=== PATIENT | female | born 1955 | race Caucasian/White ===

== ENCOUNTER 2016-12-04 20:27 | Emergency (ER) | payer OTHER ==
[~2016-12-04] VITALS: Ht 172.7 cm; Wt 140.2 kg
[2016-12-04 20:51] VITALS: BP 141/71
== END 2016-12-05 01:02 | disposition home or self-care (01) ==
LOC: ER 20:27
DX: H57.02 Anisocoria (principal); I10 Essential (primary) hypertension
CPT/HCPCS: 70450

== ENCOUNTER 2024-04-30 15:36 | Emergency (ER) | payer OTHER ==
[~2024-04-30] VITALS: Ht 172.7 cm; Wt 140.9 kg
--- NOTE | 2024-04-30 16:02 | ED.PDOC ---
Musculoskeletal HPI Comments 69 y.o morbidly obese female presents to the ED via EMS for a chief complaint of chronic bilateral knee pain and swelling, worse on the right side. Patient reports ongoing pain for years that has gradually worsened over time, is on [place] 10mg prescribed by pain management doctor. Patient has been evaluated for knee pain in the past, has been worked up but continues to have swelling with pain. The patient was on Lasix but no longer prescribed the medication. She denies any recent falls or trauma to pain site. Per EMS, patient ambulated down stairs and onto the gurney with no assistance. Patient is able to bear some weight on bilateral legs but does complain of increased pain. At rest, patient rates pain rate a 5/10. No numbness or erythema reported. Vital signs were stable at arrival Chief Complaint: Lower Extremity Time Seen by MD: 15:54 Primary Care Provider: BLANK Reviewed Notes: Nurses Notes, Physician Notes, Medications, Allergies Allergies: Coded Allergies: NO KNOWN ALLERGIES (Unverified , 12/04/16) Information Source: Patient, Emergency Med Personnel Mode of Arrival: EMS Location: Bilateral (Right greater than left) Extremity Location: Knee Timing: Came on: Gradually Severity: Moderate Able to Move Extremity: Yes Bear Weight: Limited Pain: Moderate Mechanism: Spontaneous, None Circumstances: Preceding Wound Symptoms: Swelling, Pain DVT Risk Factors: NONE Associated signs and symptoms: Swelling, Knee pain (bilateral ) Past Medical History PAST MEDICAL HISTORY: HTN Past Medical History (Other): chronic knee pain Surgical History: Denies all surgeries [employer]SULTANT History: No Pertinent [employer] CONS[employer]ANT History Family History Family History: Reviewed,noncontributory to illness Social History Smoker: Non-Smoker Alcohol: Denies ETOH Use Drugs: Denies Drug Use Lives In: Home Constitutional: denies: chills, diaphoresis, fatigue, fever, malaise, sweats, weakness, others EENTM: denies: blurred vision, double vision, ear bleeding, ear discharge, ear drainage, ear pain, ear ringing, eye pain, eye redness, hearing loss, mouth pain, mouth swelling, nasal discharge, nose bleeding, nose congestion, nose pain, photophobia, tearing, throat pain, throat swelling, voice changes, others Respiratory: denies: cough, hemoptysis, orthopnea, SOB at rest, shortness of breath, SOB with excertion, stridor, wheezing, others Cardiovascular: denies: chest pain, dizzy spells, diaphoresis, Dyspnea on exertion, edema, irregular heart beat, left arm pain, lightheadedness, palpitations, PND, syncope, others Gastrointestinal: denies: abdomen distended, abdominal pain, blood streaked bowels, constipated, diarrhea, dysphagia, difficulty swallowing, hematemesis, melena, nausea, poor appetite, poor fluid intake, rectal bleeding, rectal pain, vomiting, others Genitourinary: denies: abnormal vagina bleeding, burning, dyspareunia, dysuria, flank pain, frequency, hematuria, incontinence, pain, , vagina discharge, urgency, others Neurological: denies: dizziness, fainting, headache, left sided numbness, left sided weakness, numbness, paresthesia, pre-existing deficit, right sided numbness, right sided weakness, seizure, speech problems, tingling, tremors, weakness, others Musculoskeletal: reports: others (Bilateral knee pain and swelling ); denies: back pain, gout, joint pain, joint swelling, muscle pain, muscle stiffness, neck pain Integumetry: denies: bruises, change in color, change in hair/nails, dryness, laceration, lesions, lumps, rash, wounds, others Allergic/Immunocompromised: denies: Difficulty Healing, Frequent Infections, Hives, Itching, others Hematologic/Lymphatic: denies: anemia, blood clots, easy bleeding, easy bru ising, swollen glands, others Endocrine: denies: excessive hunger, excessive sweating, excessive thirst, e xcessive urination, flushing, intolerance to cold, intolerance to heat, unexplained weight gain, unexplained weight loss, others Psychiatric: denies: anxiety, bipolar disorder, depression, hopeless, panic disorder, schizophrenia, sleepless, suicidal, others All Other Systems: Reviewed and Negative Physical Exam General Appearance: Moderate Distress (Due to bilateral knee pain with right greater than left.), Obese HEENT: Normal ENT Inspection, Pharynx Normal, TMs Normal Neck: Full Range of Motion, Non-Tender, Normal, Normal Inspection Respiratory: Chest Non-Tender, Lungs Clear, No Accessory Muscle Use, No Respiratory Distress, Normal Breath Sounds Cardiovascular: No Edema, No JVD, No Murmur, No Gallop, Normal Peripheral P ulses, Regular Rate/Rhythm Breast Exam: Deferred Gastrointestinal: No Organomegaly, Non Tender, No Pulsatile Mass, Normal Bowel Sounds, Soft Genitalia: Deferred Pelvic: Deferred Rectal: Deferred Extremities: Other (Right and left leg display nonpitting edema that is moderate with right-sided greater than left. Somewhat taut on right side. No erythema. Reduced range of motion and right greater than left. No ecchymosis.) Neurologic: Alert, No Motor Deficits, Normal Affect, Normal Mood, No Sensory Deficits Cerebellar Function: Normal Reflexes: Normal Skin: Dry, Normal Color, Warm Lymphatic: No Adenopathy Was a procedure done? Was a procedure done?: No Differential Diagnosis EXT Differential Diagnosis: Deep Vein Thrombosis, Compartment Syndrome, Sprain, DJD, Contusion, Strain, Rheumatoid, Arthritis X-Ray, Labs, Meds, VS Vital Signs Date Time Temp Pulse Resp B/P (MAP) Pulse Ox O2 Delivery O2 Flow Rate FiO2 04/30/24 17:06 71 04/30/24 16:43 98.7 70 17 151/71 (97) 96 98.7 04/30/24 16:43 70 17 96 Room Air 04/30/24 15:52 98.1 70 24 110/60 (77) 98 Lab Test 04/30/24 17:02 Range/Units White Blood Count 8.8 4.4-10.8 10^3/uL Red Blood Count 4.26 4.0-5.20 10^6/uL Hemoglobin 14.1 12.2-16.2 g/dL Hematocrit 41.8 36.0-46.0 % Mean Corpuscular Volume 98.2 80.0-100.0 fL Mean Corpuscular Hemoglobin 33.1 H 28.0-32.0 pg Mean Corpuscular Hemoglobin Concent 33.7 32.0-36.0 g/dL Red Cell Distribution Width 14.5 H 11.8-14.3 % Platelet Count 297 140-450 10^3/uL Mean Platelet Volume 6.6 L 6.9-10.8 fL Neutrophils (%) (Auto) 89.5 H 37.0-80.0 % Lymphocytes (%) (Auto) 4.7 L 10.0-50.0 % Monocytes (%) (Auto) 4.6 0.0-12.0 % Eosinophils (%) (Auto) 0.8 0.0-7.0 % Basophils (%) (Auto) 0.4 0.0-2.0 % Neutrophils # (Auto) 7.9 1.6-8.6 10 ^3/uL Lymphocytes # (Auto) 0.4 0.4-5.4 10 ^3/uL Monocytes # (Auto) 0.4 0-1.3 10 ^3/uL Eosinophils # (Auto) 0.1 0-0.8 10 ^3/uL Basophils # (Auto) 0 0-0.2 10 ^3/uL Nucleated Red Blood Cells 0.1 % Sodium Level 139 136-145 mmol/L Potassium Level 4.0 3.5-5.1 mmol/L Chloride Level 103 98-107 mmol/L Carbon Dioxide Level 30 20-31 mmol/L Anion Gap 6 5-15 Blood Urea Nitrogen 9 9-23 mg/dL Creatinine 0.88 0.550-1.02 mg/dL Glomerular Filtration Rate Calc 72 >90 mL/min BUN/Creatinine Ratio 10.2 10.0-20.0 Serum Glucose 95 74-106 mg/dL Calcium Level 10.0 8.7-10.4 mg/dL Total Bilirubin 0.4 0.2-1.0 mg/dL Aspartate Amino Transferase (AST) 37 13-40 U/L Alanine Aminotransferase (ALT) 35 7-40 U/L Alkaline Phosphatase 79 46-116 U/L Troponin I High Sensitivity < 3 L </=34 ng/L B-Type Natriuretic Peptide 34.87 0-100 pg/mL Total Protein 8.3 H 5.7-8.2 g/dL Albumin 4.7 3.2-4.8 g/dL Current Medications Medications (Trade) Dose Ordered Sig/Gee Route Start Time Stop Time Status Last Admin Acetaminophen/ Hydrocodone Bitart ([place] 10/325MG Tab) 1 tab ONCE ONCE PO 04/30/24 16:00 04/30/24 16:01 DC 04/30/24 16:40 X-Ray, Labs, Meds, VS Comment All studies performed the ED were reviewed by me personally. Serum studies were unremarkable for any acute systemic concerns including a rule out of sepsis or electrolyte abnormalities. Doppler study of right lower extremity was unremarkable for any DVT formation. Patient appears to be suffering continued pain concerns related to her bilateral knee derangement issues. Advised patient follow up with the primary care provider and pain management. Time of 1ST Reevaluation: 18:22 Reevaluation 1ST: Improved Consultation: PCP, Other (Pain management) Patient Education/Counseling: Diagnosis, Treatment, Prognosis Family Education/Counseling: Diagnosis, Treatment, No Family Present Departure 1 Departure Time of Disposition: 18:22 Impression: Primary Impression: Internal derangement of knee Disposition: 01 HOME / SELF CARE / HOMELESS Condition: Stable Additional Instructions: Advised patient continue follow up with her primary care provider and pain management for long-term management of her chronic bilateral knee pain concerns. Discharged With: Self, Friend Critical Care Note Critical Care Time?: No Stability Stability form required: No I personally scribed for ERNESTO AVILA PAC ([email or web address]) on 04/30/24 at 16:02. Electronically submitted by Lisa Jasso ([facility]). ERNESTO AVILA PAC Apr 30, 2024 16:02
[2024-04-30] MEDS: HYDROcodone-ACET 10/325MG TAB PO ONE (16:40)
[2024-04-30 16:43] VITALS: BP 151/71; RESP 17; TEMP 98.7; O2SAT 96
--- NOTE | 2024-04-30 16:47 | DVH ---
RIGHT lower extremity venous duplex Clinical History: DVT rule out Comparison: None Technique: Duplex Doppler evaluation of the deep venous systems of both lower extremities from the common femora l veins to the popliteal veins including color Doppler and spectral/pulsed waveform analysis was perf ormed. Findings: RIGHT SIDE: The common femoral vein demonstrates appropriate compressibility and waveform variability. There is compressibility/patency of the great saphenous vein at the proximal thigh. The femoral vein demonstrates appropriate compressibility and waveform variability. The deep femoral vein demonstrates appropriate compressibility and waveform variability. The popliteal vein demonstrates appropriate compressibility and waveform variability. There is normal compressibility at the tibioperoneal trunk. Impression: 1. No right femoropopliteal venous thrombosis.
[2024-04-30 17:06] VITALS: PULSE 71
[2024-04-30 17:36] LABS: Basophils # (auto) 0 10 ^3/uL (0-0.2); Basophils % (auto) 0.4 % (0.0-2.0); Eosinophils # (auto) 0.1 10 ^3/uL (0-0.8); Eosinophils % (auto) 0.8 % (0.0-7.0); Hematocrit 41.8 % (36.0-46.0); Hemoglobin 14.1 g/dL (12.2-16.2); Lymphocytes # (auto) 0.4 10 ^3/uL (0.4-5.4); Lymphocytes % (auto) 4.7 % (10.0-50.0); Mean Corpuscular Hemoglobin 33.1 pg (28.0-32.0); Mean Corpuscular Hgb Conc. 33.7 g/dL (32.0-36.0); Mean Corpuscular Volume 98.2 fL (80.0-100.0); Monocytes # (auto) 0.4 10 ^3/uL (0-1.3); Monocytes % (auto) 4.6 % (0.0-12.0); Neutrophils # (auto) 7.9 10 ^3/uL (1.6-8.6); Neutrophils % (auto) 89.5 % (37.0-80.0); Nucleated Red Blood Cells % 0.1 %; Platelet Count (auto) 297 10^3/uL (140-450); Red Blood Cells 4.26 10^6/uL (4.0-5.20); Red Cell Distribution Width 14.5 % (11.8-14.3); White Blood Cell 8.8 10^3/uL (4.4-10.8)
[2024-04-30 18:08] LABS: Alanine Aminotransferase 35 U/L (7-40); Albumin 4.7 g/dL (3.2-4.8); Alkaline Phosphatase 79 U/L (46-116); Anion Gap 6 (5-15); Aspartate Aminotransferase 37 U/L (13-40); BUN/Creatinine Ratio 10.2 (10.0-20.0); Bilirubin, Total 0.4 mg/dL (0.2-1.0); Blood Urea Nitrogen 9 mg/dL (9-23); Carbon Dioxide 30 mmol/L (20-31); Chloride 103 mmol/L (98-107); Glucose 95 mg/dL (74-106); Sodium 139 mmol/L (136-145)
[2024-04-30 18:15] LABS: Total Protein 8.3 g/dL (5.7-8.2)
--- NOTE | 2024-04-30 18:58 | ECG ---
[facility] Test Date: 2024-04-30 Test Time: 17:06:02 Pat Name: DEMETRIO OH Department: ED Room: Gender: F Pm Head Cook: BARBI : 1955 Requested By: ERNESTO AVILA Order Number: [id number] Reading MD: Raoul Frank Measurements Intervals [place] Rate: 71 P: 45 [place]: 162 QRS: -93 QRSD: 146 T: 55 QT: 456 QTc: 496 Interpretive Statements Sinus rhythm RBBB and LAFB Electronically Signed On 05-07-2024 9:48:19 PST by Raoul Frank Please click the below link to view image of tracing.
== END 2024-04-30 18:38 | disposition home or self-care (01) ==
LOC: EDBD 15:36 → ER 15:43
DX: M23.8X2 Other internal derangements of left knee (principal); M23.8X1 Other internal derangements of right knee; I10 Essential (primary) hypertension
CPT/HCPCS: 36415; 80053; 83880; 84484; 85025; 93005; 93971